=== PATIENT | female | born 1960 | race Caucasian/White ===

== ENCOUNTER 2017-11-03 05:17 | Day surgery (SDC) | payer OTHER ==
[~2017-11-03] VITALS: Ht 166.4 cm; Wt 83.6 kg
[2017-11-03 05:49] VITALS: BP 129/84
[2017-11-03] MEDS ORDERED: LACTATED RINGERS 1,000 ML IV SCH (05:55)
[2017-11-03] MEDS ORDERED: IBUP-1222 PO (05:56)
[2017-11-03 05:57] VITALS: BP 129/84
[2017-11-03] MEDS ORDERED: MIDAZOLAM 1 MG/ML, 2ML ONE (06:27)
[2017-11-03] MEDS ORDERED: FENTANYL PF 250 MCG/5ML ONE (06:28)
[2017-11-03] MEDS ORDERED: PROPOFOL 10 MG/ML, 20ML ONE (06:29)
[2017-11-03] MEDS ORDERED: CEFAZOLIN 1,000 MG ONE ×2 (06:29→06:30)
[2017-11-03] MEDS ORDERED: ROCURONIUM 10MG/ML,5ML ONE (06:29)
[2017-11-03] MEDS ORDERED: WATER-INJECTION,STERILE 10 ML IV ONE (06:29)
[2017-11-03] MEDS ORDERED: DEXAMETHASONE 4 MG/ML, 1ML ONE ×2 (06:31)
[2017-11-03] MEDS ORDERED: ONDANSETRON 2MG/ML, 2ML ONE (06:31)
[2017-11-03] MEDS ORDERED: PROMETHAZINE 12.5 MG SUPP PR PRN (07:00)
[2017-11-03] MEDS ORDERED: PROMETHAZINE 25 MG/ML, 1ML IV PRN (07:00)
[2017-11-03] MEDS ORDERED: FENTANYL PF 100 MCG/2ML IV PRN (07:00)
[2017-11-03] MEDS ORDERED: ONDANSETRON 2MG/ML, 2ML IV PRN (07:00)
[2017-11-03] MEDS ORDERED: HYDROmorphone 1 MG/ML, 1ML IV PRN (07:00)
[2017-11-03] MEDS ORDERED: PROMETHAZINE 25 MG SUPP PR PRN (07:00)
[2017-11-03] MEDS ORDERED: LABETALOL 5MG/ML, 20ML IV PRN (07:00)
[2017-11-03] MEDS ORDERED: OXYcodone 5 MG/5 ML ORAL.SOL UDC PO PRN (07:00)
[2017-11-03] MEDS ORDERED: hydrALAzine 20 MG/ML, 1ML IV PRN (07:00)
[2017-11-03] MEDS ORDERED: MORPHINE SULFATE 4 MG/ML, 1ML IVPush PRN (07:00)
[2017-11-03] MEDS ORDERED: MEPERIDINE/PF 25MG/0.5ML IVPush PRN (07:00)
[2017-11-03] MEDS ORDERED: ONDANSETRON ODT 8 MG PO PRN (07:00)
[2017-11-03] MEDS ORDERED: ACETAMINOPHEN 325 MG TABLET PO PRN (07:00)
[2017-11-03] MEDS ORDERED: BUPIVACAINE/PF-EPI 0.5% 1:200K ONE (07:31)
[2017-11-03] MEDS ORDERED: OXYcodone 5 MG/5 ML ORAL.SOL UDC ONE (07:55)
[2017-11-03] MEDS ORDERED: FENTANYL PF 100 MCG/2ML ONE (07:55)
[2017-11-03] MEDS ORDERED: MEPERIDINE/PF 50 MG/ML ONE (07:55)
[2017-11-03] MEDS ORDERED: ACETAMINOPHEN 650 MG/20.3 ML UDC ONE (07:55)
== END 2017-11-03 10:20 ==
LOC: OUT 05:17
PROVIDERS: ATTEND Orthopaedic Surgery
DX: S72.091A Other fracture of head and neck of right femur, initial encounter for closed fracture (principal); W19.XXXA Unspecified fall, initial encounter; Y93.89 Activity, other specified; Y92.89 Other specified places as the place of occurrence of the external cause; Y99.8 Other external cause status
CPT/HCPCS: 27235; 73501; 76000; C1713; J0690; J1100; J2175; J2250; J2405; J2704; J3010; J7120